=== PATIENT | female | born 1970 | race Two or more races ===

== ENCOUNTER → 2025-03-06 | Outpatient (CLI) | payer BC, SELFPAY ==
--- NOTE | 2025-03-06 13:30 | XR_ITS ---
Examination: Thyroid sonography complete TECHNIQUE: Grayscale sonographic images thyroid lobes Date and time: March 06, 2025 1419 hours INDICATIONS: Clinical diagnosis hypothyroidism. FINDINGS: Right thyroid 2.2 cm Left thyroid 2.3 cm 3 mm calcification lower pole left thyroid lobe IMPRESSION: Negative for thyroid nodules
== END | disposition home or self-care (01) ==
PROVIDERS: PCP Family Medicine; Referring Provider Internal Medicine Endocrinology, Diabetes & Metabolism; Visit Provider Internal Medicine Endocrinology, Diabetes & Metabolism
DX: E04.9 Nontoxic goiter, unspecified (principal)
CPT/HCPCS: 76536